=== PATIENT | male | born 2000 | race Caucasian/White ===

== ENCOUNTER 2020-07-17 13:39 | Observation (INO) | payer BC ==
[~2020-07-17] VITALS: Ht 185.4 cm; Wt 84.2 kg
--- NOTE | 2020-07-17 14:15 | NUR ---
first contact with pt. pt c/o acute dzy with n/v. pt denies any other sx. pt's aox4. resps even and unlabored. bp/spo2 monitors in place. call light within reach.
[2020-07-17] MEDS ORDERED: SODIUM CHLORIDE 0.9% 1,000ML IVBOLUS ONE (14:30)
[2020-07-17] MEDS ORDERED: SODIUM CHLORIDE FLUSH 10ML SYR IVF ONE (14:30)
[2020-07-17] MEDS ORDERED: ONDANSETRON ODT 4 MG PO ONE (14:30)
[2020-07-17] MEDS ORDERED: MECLIZINE CHEWABLE 25 MG TAB PO ONE (14:30)
[2020-07-17] MEDS ORDERED: ONDANSETRON ODT 4 MG ONE (14:37)
[2020-07-17] MEDS ORDERED: MECLIZINE CHEWABLE 25 MG TAB ONE (14:37)
--- NOTE | 2020-07-17 14:48 | NUR ---
PIV EST ON L AC WITH NO COMPLICATIONS. PT MEDICATED PER EMAR. NS INFUSING AT THIS TIME. PT TOLERATED WELL.
[2020-07-17 14:56] LABS: BASOPHILS # (AUTO) 0.03 x10^3/uL (0-0.1); BASOPHILS % (AUTO) 0 % (0-1); EOSINOPHILS # (AUTO) 0.07 x10^3/uL (0-0.4); EOSINOPHILS % (AUTO) 1 % (1-7); LYMPHOCYTES # (AUTO) 1.23 x10^3/uL (1-3.4); LYMPHOCYTES % (AUTO) 13 % (22-44); MD NO; MEAN CORPUSCULAR HEMOGLOBIN 28.2 pg (27.5-34.5); MEAN CORPUSCULAR HGB CONC 32.7 g/dL (33.2-36.2); MEAN CORPUSCULAR VOLUME 86.2 fL (81-97); MEAN PLATELET VOLUME 8.3 fL (7.4-10.4); MONOCYTES # (AUTO) 0.47 x10^3/uL (0.2-0.8); MONOCYTES % (AUTO) 5 % (2-9); NEUTROPHILS # (AUTO) 7.78 x10^3/uL (1.8-6.8); NEUTROPHILS % (AUTO) 81 % (42-75); PLATELET COUNT 264 x10^3/uL (130-400); RED BLOOD COUNT 5.68 x10^6/uL (4.38-5.82); RED CELL DISTRIBUTION WIDTH 12.9 % (9.4-14.8)
[2020-07-17 15:06] LABS: ALBUMIN 3.9 g/dL (3.4-5.0); ANION GAP 5 mmol/L (5-15); CALCIUM 9.3 mg/dL (8.5-10.1); CHLORIDE 108 mmol/L (98-107); CREATININE 1.07 mg/dL (0.7-1.3)
--- NOTE | 2020-07-17 15:34 | NUR ---
pt resting in [facility]. pt's aox4. resps even and unlabored.
--- NOTE | 2020-07-17 15:52 | NUR ---
pt stated "i feel the same. i 'm nauseated and dzy." edmd notified.
[2020-07-17] MEDS ORDERED: DIAZEPAM 5 MG/ML, 2ML ONE (15:54)
--- NOTE | 2020-07-17 15:59 | NUR ---
pt medicated per emar. pt tolerated well.
[2020-07-17] MEDS ORDERED: DIAZEPAM 5 MG/ML, 2ML IV ONE (16:00)
--- NOTE | 2020-07-17 16:23 | NUR ---
pt attempted to amb and pt stated "i feel the same. i'm nauseated and dzy." edmd notified.
--- NOTE | 2020-07-17 16:30 | NUR ---
pt to mri at this time.
--- NOTE | 2020-07-17 17:28 | NUR ---
pt back to room from mri. pt's aox4. resps even and unlabored. pt stated"i still feel the same." edmd notified.
[2020-07-17] MEDS ORDERED: hydrALAzine 20 MG/ML, 1ML IVPush PRN (18:30)
[2020-07-17] MEDS ORDERED: DOCUSATE 100 MG CAPSULE PO PRN (18:30)
[2020-07-17] MEDS ORDERED: ACETAMINOPHEN 325 MG TABLET PO PRN (18:30)
[2020-07-17] MEDS ORDERED: TRAZODONE 50MG TABLET PO PRN (18:30)
[2020-07-17] MEDS ORDERED: ONDANSETRON 2MG/ML, 2ML IVPush PRN (18:30)
[2020-07-17] MEDS ORDERED: morphine SULFATE 10 MG/ML, 1ML IVPush PRN (18:30)
--- NOTE | 2020-07-17 18:55 | NUR ---
report given to victor manuel loving.
[2020-07-17 20:05] VITALS: BP 116/71
[2020-07-17] MEDS: MECLIZINE CHEWABLE 25 MG TAB PO SCH (20:26)
[2020-07-17] MEDS: SODIUM CHLORIDE 0.9% 1,000 ML IV SCH (20:27)
[2020-07-18 02:13] VITALS: BP 118/76
[2020-07-18 05:02] LABS: BASOPHILS # (AUTO) 0.03 x10^3/uL (0-0.1); BASOPHILS % (AUTO) 0 % (0-1); EOSINOPHILS # (AUTO) 0.17 x10^3/uL (0-0.4); EOSINOPHILS % (AUTO) 2 % (1-7); LYMPHOCYTES # (AUTO) 2.92 x10^3/uL (1-3.4); LYMPHOCYTES % (AUTO) 41 % (22-44); MD NO; MEAN CORPUSCULAR HEMOGLOBIN 27.6 pg (27.5-34.5); MEAN CORPUSCULAR VOLUME 86.4 fL (81-97); MEAN PLATELET VOLUME 8.1 fL (7.4-10.4); MONOCYTES # (AUTO) 0.71 x10^3/uL (0.2-0.8); MONOCYTES % (AUTO) 10 % (2-9); NEUTROPHILS # (AUTO) 3.38 x10^3/uL (1.8-6.8); NEUTROPHILS % (AUTO) 47 % (42-75); PLATELET COUNT 245 x10^3/uL (130-400); RED BLOOD COUNT 5.11 x10^6/uL (4.38-5.82); RED CELL DISTRIBUTION WIDTH 12.7 % (9.4-14.8)
[2020-07-18 05:16] LABS: ANION GAP 5 mmol/L (5-15); CALCIUM 8.4 mg/dL (8.5-10.1); CHLORIDE 112 mmol/L (98-107)
[2020-07-18] MEDS: SODIUM CHLORIDE 0.9% 1,000 ML IV SCH (06:22)
[2020-07-18 08:13] VITALS: BP 94/55
[2020-07-18 08:18] VITALS: BP 104/70
[2020-07-18 08:21] VITALS: BP 118/73
[2020-07-18] MEDS: MECLIZINE CHEWABLE 25 MG TAB PO SCH ×2 (08:50→17:18)
[2020-07-18] MEDS ORDERED: ENOXAPARIN 40 MG/0.4 ML SQ SCH (09:00)
[2020-07-18] MEDS ORDERED: ONDA4TAB7 PO (14:12)
[2020-07-18] MEDS ORDERED: MECL-85 PO (14:12)
[2020-07-18 15:06] VITALS: BP 116/71
== END 2020-07-18 17:34 | disposition home or self-care (01) ==
LOC: ED 18:04 → EDIP 18:51 → INTOOBSV 18:51 → 3N 19:51
PROVIDERS: ADMIT Student in an Organized Health Care Education/Training Program; ATTEND Family Medicine
DX: H81.10 Benign paroxysmal vertigo, unspecified ear (principal); J45.909 Unspecified asthma, uncomplicated; Z79.899 Other long term (current) drug therapy
CPT/HCPCS: 36415; 70551; 80048; 82040; 83735; 85025; 93005; 96361; 96372; 96374; 97162; 99285; G0378; J1650; J3360; J7030; Q0162